=== PATIENT | male | born 1940 | race Caucasian/White ===

== ENCOUNTER → 2018-05-19 07:25 | Outpatient (CLI) | payer MEDICARE, OTHER, SELFPAY ==
[2018-05-19 07:49] LABS: Add Manual Diff / Slide Review NO; Basophils Percent Auto 0.6 % (0-2); Eosinophils Percent Auto 1.3 % (2-4); Hematocrit 37.4 % (41-53); Hemoglobin 12.6 g/dL (13.5-17.5); Lymphocytes Percent Auto 21.9 % (25-40); Mean Corpuscular HGB Conc 33.6 % (30-36); Mean Corpuscular Hemoglobin 26.1 PG (26-34); Mean Corpuscular Volume 77.7 fL (80-100); Monocytes Percent Auto 7.2 % (3-14); Neutrophils Absolute Auto 6800 /uL (3000-5900); Platelet Count 371 X10^3/uL (150-400); Red Blood Cell Count 4.81 X10^6/uL (4.5-5.9); Red Cell Distribution Width 14.3 % (11.6-14.8); White Blood Cell Count 9.9 X10^3/uL (4.5-11.0)
== END ==
PROVIDERS: PCP Internal Medicine; Visit Provider Internal Medicine Hematology & Oncology
DX: C18.7 Malignant neoplasm of sigmoid colon (principal)
CPT/HCPCS: 36415; 85025

== ENCOUNTER 2018-11-19 20:53 | Emergency (ER) | payer MEDICARE, OTHER, SELFPAY ==
[2018-11-19 21:07] VITALS: BP 132/79; PULSE 85; RESP 18; TEMP 36.8; O2SAT 99
--- NOTE | 2018-11-19 21:13 | DI.RAD.S_ITS ---
PROCEDURE: XR CHEST 1V INDICATIONS: fever TECHNIQUE: One view of the chest was acquired. COMPARISON: [facility], , CHEST 2 VIEW, 01/09/2015, 10:45. FINDINGS: Surgical changes and devices: Right chest port with the tip projecting in the upper SVC Lungs and pleura: No acute consolidation. Scattered subsegmental atelectasis and/or scarring. No pleural effusions or pneumothorax. Mediastinum: Mediastinal contours appear normal. Heart size is normal. Bones and chest wall: Bilateral shoulder joint degeneration. IMPRESSION: Right chest port with the tip projecting in the upper SVC. No pneumothorax. No acute consolidation. Scattered subsegmental atelectasis and/or scarring Dictated by: Omar Estrada M.D. on 11/20/2018 at 7:49 Approved by: Omar Estrada M.D. on 11/20/2018 at 7:51
--- NOTE | 2018-11-19 21:18 | ED.FEVER ---
HPI - Fever General Chief Complaint: Fever Stated Complaint: FEVER, CANCER PATIENT Time Seen by Provider: 11/19/18 21:01 Source: patient Mode of arrival: ambulatory Limitations: no limitations History of Present Illness HPI Narrative: patient is a 78-year-old male with colon cancer. He finished chemo and radiation but beginning of October presenting today with a fever of 102. he was a little chilled today and took a nap and felt warm. His took his temperature numerous times even when out and bought a new thermometer took his temperature again it remained elevated at 102. At which point she gave him Tylenol. He is now afebrile without specific complaints although he does have some painful urination. His he has no cough or shortness of breath. He does struggle with constipation although he had a bowel movement today he has no significant abdominal pain no nausea or vomiting. He is scheduled for surgery for colon cancer next week. MD complaint: fever Onset (ago): hour(s) Relieving factors: acetaminophen Treatments prior to arrival fever: acetaminophen Related Data Previous Rx's Medication Instructions Recorded irbesartan 300 mg PO QDAY #180 tab 10/20/17 azithromycin [Zithromax Z-Boy] 0 PO SEE INSTRUCTIONS 5 Days #0 tab 01/19/18 ciprofloxacin HCl [Cipro] 500 mg PO BID #14 tab 11/19/18 Allergies Allergy/AdvReac Type Severity Reaction Status Date / Time No Known Drug Allergies Allergy Verified 11/19/18 21:06 Review of Systems Review of Systems ROS Unobtainable: All systems reviewed & are unremarkable except as noted in HPI and below Constitutional Reports chills, Reports fever(s), Denies headache(s) and Denies lethargy Eyes Denies change in vision, Denies eye discharge, Denies irritation and Denies loss of vision ENT Ears, Nose, Mouth, and Throat: Denies headache(s) Cardiovascular Denies chest pain, Denies irregular heart rhythm, Denies lightheadedness, Denies palpitations and Denies orthopnea Gastrointestinal Gastrointestinal: Reports constipation ( Bowel movement today on MiraLax and Colace) Genitourinary Reports as per HPI Musculoskeletal Denies back pain, Denies muscle weakness, Denies numbness and Denies tingling Integumentary/Breasts Denies pruritus, Denies erythema, Denies rash and Denies wounds Neurologic Denies headache(s), Denies loss of vision, Denies numbness and Denies tingling Endocrine Denies palpitations PFSH Medical History Colon cancer (Acute) Surgical History History of tonsillectomy History of vasectomy Family History Grandmother Cancer Diabetes mellitus Heart disease Grandfather Heart disease Hypertension Grandmother Heart disease Sister Age: 75 Overweight Diabetes mellitus Social History Smoking Status: Never smoker Family History Grandmother Cancer Diabetes mellitus Heart disease Grandfather Heart disease Hypertension Grandmother Heart disease Sister Age: 75 Overweight Diabetes mellitus Social History Smoking Status: Never smoker Exam Initial Vital Signs Initial Vital Signs: Vital Signs Temperature 98.3 F 11/19/18 21:07 Pulse Rate 85 11/19/18 21: Respiratory Rate 18 11/19/18 21:07 Blood Pressure 132/79 11/19/18 21: Pulse Oximetry 99 11/19/18 21:07 GENERAL: well-appearing elderly male in no acute distress or in oriented x4 HEENT: Head atraumatic,EOMI, pupils reactive, neck is supple CARDIOVASCULAR: Regular rate and rhythm without murmurs, rubs or gallops. RESPIRATORY: Breath sounds equal bilaterally, no wheezes rales or rhonchi. ABDOMEN: Soft, nontender. Normoactive bowel sounds all 4 quadrants. No guarding or rebound. EXTREMITIES: Normal range of motion, no clubbing or edema. Neurovascularly intact NEUROLOGICAL: Alert and oriented x4.Normal gait and speech. SKIN: Warm, dry, no laceration, no petechiae, no rashes or lesions. Course Orders Ordered: ED Orders 11/19/18 21:13 XR chest 1V Stat 11/19/18 21:20 Blood Culture Stat Complete Blood Count AUTO DIFF Stat Comprehensive Metabolic Panel Stat Lactate (Lactic Acid) Stat Procalcitonin Stat 11/19/18 21:45 Influenza A and B by PCR Rapid Stat 11/19/18 22:50 Urine Microscopic Stat Discontinued Medications Sodium Chloride (Normal Saline 0.9%) 1,000 mls @ 1,000 mls/hr IV CONT CONCHITA Last Infusion: 11/19/18 23:10 Dose: 0 mls/hr Admin: 11/19/18 21:33 Dose: 1,000 mls/hr Levofloxacin (Levaquin) 500 mg PO NOW ONE Stop: 11/19/18 23:32 Last Admin: 11/19/18 23:49 Dose: 500 mg Vital Signs - 8 hr 11/19/18 21:07 11/19/18 21:37 11/19/18 22:55 Temperature 98.3 F 97.9 F Pulse Rate 85 79 74 Respiratory Rate 18 17 16 Blood Pressure 132/79 Blood Pressure [Right Arm] 114/70 110/77 Pulse Oximetry 99 98 97 MDM - Fever Lab Data Attestation: I reviewed the patient's lab results. Result diagrams: 11/19/18 21:20 11/19/18 21:20 Lab Results 11/19/18 11/19/18 11/19/18 Range/Units 21:20 21:20 21:20 WBC 10.1 (4.5-11.0) X10^3/uL RBC 3.52 L (4.5-5.9) X10^6/uL Hgb 10.8 L (13.5-17.5) g/dL Hct 32.3 L (41-53) % MCV 91.6 (80-100) fL MCH 30.6 (26-34) PG MCHC 33.4 (30-36) % RDW 15.7 H (11.6-14.8) % Plt Count 327 (150-400) X10^3/uL Neut % (Auto) 86.3 H (50-75) % Lymph % (Auto) 6.6 L (25-40) % [place] % (Auto) 5.9 (3-14) % Eos % (Auto) 0.8 L (2-4) % Baso % (Auto) 0.4 (0-2) % Neut # (Auto) 8800 H (6400-3784) /uL Lymph # (Auto) 700 L (4430-5523) /uL [place] # (Auto) 600 (0-900) /uL Eos # (Auto) 100 (0-450) /uL Baso # (Auto) 0 (0-100) /uL Sodium 136 L (137-145) mmol/L Potassium 4.2 (3.4-5.1) mmol/L Chloride 102 (98-107) mmol/L Carbon Dioxide 21 L (22-32) mmol/L BUN 18 (9-20) mg/dL Creatinine 0.80 (0.66-1.25) mg/dL Estimated GFR > 60.0 (>60) mL/min BUN/Creatinine Ratio 22.5 H (6-22) Glucose 111 H (80-110) mg/dL Lactate (0.7-2.1) mmol/L Calcium 8.5 (8.4-10.2) mg/dL Total Bilirubin 0.8 (0.2-1.3) mg/dL AST 32 (17-59) IU/L ALT 23 (21-72) IU/L Alkaline Phosphatase 176 H (38-126) U/L Total Protein 7.6 (6.3-8.2) g/dL Albumin 3.8 (3.5-5.0) g/dL Globulin 3.8 (1.7-4.1) g/dL Albumin/Globulin Ratio 1.0 (1.0-2.8) Procalcitonin 0.15 (<0.5) ng/mL Urine RBC (0-5/HPF) Urine WBC (0-5/HPF) Ur Squamous Epith Cells Urine Bacteria (None) Ur Culture Indicated? Influenza A & B (PCR) (Negative) 11/19/18 11/19/18 11/19/18 Range/Units 21:20 21:45 22:50 WBC (4.5-11.0) X10^3/uL RBC (4.5-5.9) X10^6/uL Hgb (13.5-17.5) g/dL Hct (41-53) % MCV (80-100) fL MCH (26-34) PG MCHC (30-36) % RDW (11.6-14.8) % Plt Count (150-400) X10^3/uL Neut % (Auto) (50-75) % Lymph % (Auto) (25-40) % [place] % (Auto) (3-14) % Eos % (Auto) (2-4) % Baso % (Auto) (0-2) % Neut # (Auto) (4940-9774) /uL Lymph # (Auto) (5987-0636) /uL [place] # (Auto) (0-900) /uL Eos # (Auto) (0-450) /uL Baso # (Auto) (0-100) /uL Sodium (137-145) mmol/L Potassium (3.4-5.1) mmol/L Chloride (98-107) mmol/L Carbon Dioxide (22-32) mmol/L BUN (9-20) mg/dL Creatinine (0.66-1.25) mg/dL Estimated GFR (>60) mL/min BUN/Creatinine Ratio (6-22) Glucose (80-110) mg/dL Lactate 1.0 (0.7-2.1) mmol/L Calcium (8.4-10.2) mg/dL Total Bilirubin (0.2-1.3) mg/dL AST (17-59) IU/L ALT (21-72) IU/L Alkaline Phosphatase (38-126) U/L Total Protein (6.3-8.2) g/dL Albumin (3.5-5.0) g/dL Globulin (1.7-4.1) g/dL Albumin/Globulin Ratio (1.0-2.8) Procalcitonin (<0.5) ng/mL Urine RBC 0-1/hpf (0-5/HPF) Urine WBC 0-1/hpf (0-5/HPF) Ur Squamous Epith Cells 5-10 /hpf H Urine Bacteria Moderate (10-30) H (None) Ur Culture Indicated? Cult not indicated Influenza A & B (PCR) Negative (Negative) Urine Dip Bedside Urine Glucose Negative Bedside Urine Bilirubin + 1 Bedside Urine Ketone - Negative Urine Specific [place] 1.015 Bedside Urine Occult Blood ++ Bedside Urine pH 6.0 Bedside Urine Protein ++ 100 Bedside Urine Urobilinogen 1+ 2mg Bedside Urine Nitrite - Negative Bedside Urine Leukocytes +/- 15 Esterase Imaging Data Chest x-ray: Attestation: I personally reviewed and interpreted this imaging study as follows: My impression: Port placed, no acute cardiopulmonary process no pneumonia MDM Narrative Medical decision making narrative: Patient is not neutropenic. She does have some discomfort with urination. He does have leukocytes in his urine with a mildly elevated procalcitonin. Based on patient's symptoms will treat. He really appears well he would like to go home. He has no complaints. Discharge Plan Departure Patient Disposition: Home Clinical Impression: UTI (urinary tract infection) Qualifiers: Urinary tract infection type: acute cystitis Hematuria presence: without hematuria Qualified Code(s): N30.00 - Acute cystitis without hematuria Discharge Date/Time: 11/20/18 00:00 Interventions: ED Discharge Assessment Last Done: 11/20/18 00:10 Instructions: DI for Urinary Tract Infection (UTI) Activity Restrictions/Additional Instructions: *You have been diagnosed with bladder infection *What to do: increase fluid intake, fever control *Continue to take medications as directed Cipro 500 mg twice a day for 7 days *Follow up with your primary care provider in 2-3 days *Return to ER if you should have increasing weakness, decreased oral intake is, persistent fever, any new, worsening or concerning symptoms Prescriptions: New ciprofloxacin HCl [Cipro] 500 mg tablet 500 mg PO BID Qty: 14 RF: 0 No Action irbesartan 150 MG tablet 300 mg PO QDAY Qty: 180 RF: 3 azithromycin [Zithromax Z-Boy] 250 MG tablet PO SEE INSTRUCTIONS 5 Days Qty: 0 RF: 0 Referrals: Rika Robertson ARNP [Primary Care Provider] -
[2018-11-19] MEDS: SODIUM CHLORIDE 0.9% 1,000 ML 1000 ML IV (21:33)
[2018-11-19 21:37] VITALS: BP 114/70; PULSE 79; RESP 17; O2SAT 98
[2018-11-19 21:40] LABS: Add Manual Diff / Slide Review NO; Basophils Absolute Auto 0 /uL (0-100); Basophils Percent Auto 0.4 % (0-2); Eosinophils Absolute Auto 100 /uL (0-450); Eosinophils Percent Auto 0.8 % (2-4); Hematocrit 32.3 % (41-53); Hemoglobin 10.8 g/dL (13.5-17.5); Lymphocytes Absolute Auto 700 /uL (1100-4500); Lymphocytes Percent Auto 6.6 % (25-40); Mean Corpuscular HGB Conc 33.4 % (30-36); Mean Corpuscular Hemoglobin 30.6 PG (26-34); Mean Corpuscular Volume 91.6 fL (80-100); Monocytes Absolute Auto 600 /uL (0-900); Monocytes Percent Auto 5.9 % (3-14); Neutrophils Absolute Auto 8800 /uL (1500-7000); Neutrophils Percent Auto 86.3 % (50-75); Platelet Count 327 X10^3/uL (150-400); Red Blood Cell Count 3.52 X10^6/uL (4.5-5.9); Red Cell Distribution Width 15.7 % (11.6-14.8); White Blood Cell Count 10.1 X10^3/uL (4.5-11.0)
[2018-11-19 21:53] LABS: Alanine Aminotransferase 23 IU/L (21-72); Albumin 3.8 g/dL (3.5-5.0); Alkaline Phosphatase 176 U/L (38-126); Aspartate Aminotransferase 32 IU/L (17-59); BUN Creatinine Ratio 22.5 (6-22); Bilirubin Total 0.8 mg/dL (0.2-1.3); Blood Urea Nitrogen 18 mg/dL (9-20); Calcium 8.5 mg/dL (8.4-10.2); Carbon Dioxide 21 mmol/L (22-32); Chloride 102 mmol/L (98-107); Estimated Glomerular Filt Rate > 60.0 mL/min (>60); Globulin 3.8 g/dL (1.7-4.1); Glucose 111 mg/dL (80-110); HEMOLYSIS 42 (0-50); Potassium 4.2 mmol/L (3.4-5.1); Sodium 136 mmol/L (137-145); Total Protein 7.6 g/dL (6.3-8.2)
[2018-11-19 22:08] LABS: Procalcitonin 0.15 ng/mL (<0.5)
[2018-11-19 22:12] LABS: Influenza A and B by PCR Rapid Negative (Negative)
[2018-11-19 22:55] VITALS: BP 110/77; PULSE 74; RESP 16; TEMP 36.6; O2SAT 97
[2018-11-19 23:25] LABS: Bacteria Urine Moderate (10-30); RBC Urine 0-1/HPF (0-5/HPF); Squamous Epithelial Cell Urine 5-10 /HPF; WBC Urine 0-1/HPF (0-5/HPF)
[2018-11-19 23:26] LABS: Culture Indicated Urine Cult Not Indicated
[2018-11-19] MEDS: levoFLOXacin 250 MG TABLET 500 MG PO (23:49)
== END 2018-11-20 | disposition home or self-care (01) ==
PROVIDERS: Emergency Provider Emergency Medicine; Family Provider Internal Medicine; PCP Internal Medicine
DX: N39.0 Urinary tract infection, site not specified (principal)
CPT/HCPCS: 36591; 71045; 80053; 81003; 81015; 83605; 84145; 85025; 87040; 87400; 96360; 96361; 99283; 99284

== ENCOUNTER → 2019-11-03 13:30 | Oncology outpatient (ONC) | payer MEDICARE, OTHER, SELFPAY ==
[2019-10-28] MEDS: SODIUM CHLORIDE 0.9% 1,000 ML 1000 ML IV (15:33)
[2019-10-28 15:43] VITALS: BP 119/79; PULSE 75; RESP 16; TEMP 36.4; O2SAT 100
[2019-10-28 16:58] LABS: BUN Creatinine Ratio 22.5 (6-22); Blood Urea Nitrogen 27 mg/dL (9-20); Calcium 8.6 mg/dL (8.4-10.2); Carbon Dioxide 19 mmol/L (22-32); Chloride 110 mmol/L (98-107); Estimated Glomerular Filt Rate 58.1 mL/min (>60); Glucose 87 mg/dL (80-110); HEMOLYSIS < 15 (0-50); Potassium 4.5 mmol/L (3.4-5.1); Sodium 137 mmol/L (137-145)
[2019-11-03] MEDS: SODIUM CHLORIDE 0.9% 1,000 ML 500 ML IV (14:05)
[2019-11-03 14:19] VITALS: BP 109/69; PULSE 70; RESP 16; TEMP 36.8; O2SAT 99
[2019-11-03 16:45] LABS: Blood Urea Nitrogen 20 mg/dL (9-20); Calcium 8.7 mg/dL (8.4-10.2); Carbon Dioxide 23 mmol/L (22-32); Chloride 108 mmol/L (98-107); Estimated Glomerular Filt Rate > 60.0 mL/min (>60); Glucose 101 mg/dL (80-110); HEMOLYSIS < 15 (0-50); Potassium 4.4 mmol/L (3.4-5.1); Sodium 138 mmol/L (137-145)
== END ==
PROVIDERS: PCP Internal Medicine; Visit Provider Internal Medicine Hematology & Oncology
DX: C19 Malignant neoplasm of rectosigmoid junction (principal); N28.9 Disorder of kidney and ureter, unspecified; Z93.2 Ileostomy status
CPT/HCPCS: 36415; 80048; 96360; 96523

== ENCOUNTER → 2022-04-23 15:44 | Outpatient (ROUT) | payer MEDICARE, OTHER, SELFPAY ==
[2022-04-23 15:52] LABS: Add Manual Diff / Slide Review NO; Basophils Absolute Auto 0 /uL (0-100); Basophils Percent Auto 0.5 % (0-2); Eosinophils Absolute Auto 0 /uL (0-450); Eosinophils Percent Auto 0.5 % (2-4); Hematocrit 37.8 % (41-53); Lymphocytes Absolute Auto 700 /uL (1100-4500); Lymphocytes Percent Auto 9.6 % (25-40); Mean Corpuscular HGB Conc 34.5 % (30-36); Mean Corpuscular Volume 86.9 fL (80-100); Monocytes Absolute Auto 400 /uL (0-900); Monocytes Percent Auto 6.1 % (3-14); Neutrophils Absolute Auto 6100 /uL (1500-7000); Neutrophils Percent Auto 83.3 % (50-75); Platelet Count 212 X10^3/uL (150-400); Red Blood Cell Count 4.35 X10^6/uL (4.5-5.9); Red Cell Distribution Width 14.1 % (11.6-14.8); White Blood Cell Count 7.4 X10^3/uL (4.5-11.0)
[2022-04-23 17:12] LABS: Alanine Aminotransferase 12 IU/L (<50); Albumin Globulin Ratio 1.5 (1.0-2.8); Alkaline Phosphatase 83 U/L (38-126); Aspartate Aminotransferase 23 IU/L (17-59); BUN Creatinine Ratio 18.7 (6-22); Bilirubin Total 1.6 mg/dL (0.2-1.3); Blood Urea Nitrogen 17 mg/dL (9-20); Calcium 8.7 mg/dL (8.4-10.2); Carbon Dioxide 27 mmol/L (22-32); Chloride 106 mmol/L (98-107); Estimated Glomerular Filt Rate > 60 mL/min (>60); Globulin 2.7 g/dL (1.7-4.1); Glucose 96 mg/dL (80-110); HEMOLYSIS < 15 (0-50); Potassium 4.5 mmol/L (3.4-5.1); Sodium 139 mmol/L (137-145); Total Protein 6.7 g/dL (6.3-8.2)
== END ==
PROVIDERS: Family Provider Internal Medicine; PCP Internal Medicine; Visit Provider Internal Medicine
DX: U07.1 COVID-19 (principal); I10 Essential (primary) hypertension; C18.9 Malignant neoplasm of colon, unspecified
CPT/HCPCS: 80053; 85025

== ENCOUNTER → 2023-01-24 09:43 | Outpatient (CLI) | payer MEDICARE, OTHER, SELFPAY ==
[2023-01-24 10:41] LABS: Add Manual Diff / Slide Review NO; Basophils Absolute Auto 0 /uL (0-100); Basophils Percent Auto 0.5 % (0-2); Eosinophils Absolute Auto 100 /uL (0-450); Eosinophils Percent Auto 1.8 % (2-4); Hematocrit 40.2 % (41-53); Hemoglobin 13.8 g/dL (13.5-17.5); Lymphocytes Absolute Auto 800 /uL (1100-4500); Lymphocytes Percent Auto 16.4 % (25-40); Mean Corpuscular HGB Conc 34.4 % (30-36); Mean Corpuscular Hemoglobin 29.7 PG (26-34); Mean Corpuscular Volume 86.2 fL (80-100); Monocytes Absolute Auto 300 /uL (0-900); Monocytes Percent Auto 5.6 % (3-14); Neutrophils Absolute Auto 3700 /uL (1500-7000); Neutrophils Percent Auto 75.7 % (50-75); Platelet Count 238 X10^3/uL (150-400); Red Blood Cell Count 4.67 X10^6/uL (4.5-5.9); White Blood Cell Count 4.9 X10^3/uL (4.5-11.0)
[2023-01-24 11:08] LABS: Alanine Aminotransferase 18 IU/L (<50); Albumin 4.3 g/dL (3.5-5.0); Albumin Globulin Ratio 1.3 (1.0-2.8); Alkaline Phosphatase 86 U/L (38-126); Aspartate Aminotransferase 25 IU/L (17-59); BUN Creatinine Ratio 19.4 (6-22); Bilirubin Total 1.6 mg/dL (0.2-1.3); Blood Urea Nitrogen 18 mg/dL (9-20); Calcium 9.1 mg/dL (8.4-10.2); Carbon Dioxide 28 mmol/L (22-32); Chloride 105 mmol/L (98-107); Estimated Glomerular Filt Rate > 60 mL/min (>60); Globulin 3.2 g/dL (1.7-4.1); Glucose 109 mg/dL (80-110); HEMOLYSIS < 15 (0-50); Potassium 4.7 mmol/L (3.4-5.1); Sodium 141 mmol/L (137-145); Total Protein 7.5 g/dL (6.3-8.2); Uric Acid 6.4 mg/dL (3.5-8.5)
[2023-01-24 11:13] LABS: High Sensitivity CRP - Cardiac 0.9 mg/L (1.0-3.0); Rheumatoid Factor 13.5 IU/mL (<12.0)
[2023-01-24 11:36] LABS: Thyroid Stimulating Hormone 2.27 uIU/mL (0.47-4.68)
[2023-01-24 12:22] LABS: Erythrocyte Sedimentation Rate 7 MM/HR (0-15)
[2023-01-25 17:08] LABS: SS A Ro Sjogrens Antibody < 0.2 AI (0.0-0.9); SS B La Sjogrens Antibody < 0.2 AI (0.0-0.9)
[2023-01-27 09:10] LABS: Angiotensin Converting Enzyme 44 U/L (14-82)
[2023-01-28 10:13] LABS: ANA Screen, IFA Negative (.)
== END ==
PROVIDERS: Family Provider Internal Medicine; PCP Internal Medicine; Referring Provider Ophthalmology; Visit Provider Ophthalmology
DX: H53.453 Other localized visual field defect, bilateral (principal)
CPT/HCPCS: 36415; 80053; 82164; 84443; 84550; 85025; 85651; 86038; 86140; 86235; 86430

== ENCOUNTER → 2023-01-27 16:28 | Outpatient (CLI) | payer MEDICARE, OTHER, SELFPAY ==
--- NOTE | 2023-01-27 16:33 | DI.MRI.S_ITS ---
PROCEDURE: MR HEAD/BRAIN WO/W CON INDICATIONS: Unspecified optic atrophy TECHNIQUE: Noncontrast axial T1 spin echo, axial T2 fast spin echo, sagittal and axial FLAIR, axial gradient echo, axial diffusion and ADC through the brain. After the administration of contrast, axial and coronal and sagittal T1 spin echo with fat saturation through the brain, coronal thin-slice T1 spin echo with fat saturation through the orbits. COMPARISON: None. FINDINGS: Image quality: Excellent. Orbits: The globes demonstrate a normal, symmetric appearance. Scrutiny is given to the optic nerves demonstrate an unremarkable, symmetric appearance. No abnormal fluid can be seen along the optic nerves themselves. No orbital masses are seen. The Anusha glands demonstrate a symmetric appearance. The extraocular muscles likewise demonstrate a normal, symmetric appearance, without abnormal enhancement. CSF spaces: Ventricles are normal in size and shape. Basal cisterns are patent. There is a nonenhancing fluid collection involving the posterior fossa, just to the right of midline, which is attributed to an arachnoid cyst. Brain: No acute intracranial bleeds or mass effects. Yeager-white matter interface is intact. No abnormal intracranial enhancement. Diffusion weighted images demonstrate no acute ischemic insults. Brainstem appears normal. Normal intravascular flow voids are present. Skull and face: Calvarial marrow signal is normal. Orbits appear normal. Sinuses: Sinuses and mastoids appear clear. Mild bilateral candi bullosa can be seen. IMPRESSION: No significant orbital abnormality is identified. No significant intracranial abnormality is seen. No findings of acute or subacute infarction can be seen. Additional findings: Right posterior fossa arachnoid cyst Dictated by: Joss Anaya M.D. on 01/27/2023 at 18:24 Approved by: Joss Anaya M.D. on 01/27/2023 at 18:26
== END ==
PROVIDERS: Family Provider Internal Medicine; PCP Internal Medicine; Referring Provider Ophthalmology; Visit Provider Ophthalmology
DX: H47.20 Unspecified optic atrophy (principal); G93.0 Cerebral cysts; D86.0 Sarcoidosis of lung; H31.092 Other chorioretinal scars, left eye; H53.453 Other localized visual field defect, bilateral
CPT/HCPCS: 70553; A9579

== ENCOUNTER → 2023-08-12 08:32 | Outpatient (CLI) | payer MEDICARE, OTHER, SELFPAY | PROVIDERS: Family Provider Internal Medicine; PCP Internal Medicine; Referring Provider Physician Assistant; Visit Provider Surgery | DX: T81.31XA Disruption of external operation (surgical) wound, not elsewhere classified, initial encounter (principal); S31.000A Unspecified open wound of lower back and pelvis without penetration into retroperitoneum, initial encounter | CPT/HCPCS: 11042; 87070; 87075; 87205; 99203; 99213 ==

== ENCOUNTER → 2023-08-19 08:32 | Outpatient (CLI) | payer MEDICARE, OTHER, SELFPAY | PROVIDERS: Family Provider Internal Medicine; PCP Internal Medicine; Referring Provider Physician Assistant; Visit Provider Surgery | DX: T81.31XA Disruption of external operation (surgical) wound, not elsewhere classified, initial encounter (principal); I10 Essential (primary) hypertension; Z85.828 Personal history of other malignant neoplasm of skin; Z85.038 Personal history of other malignant neoplasm of large intestine; Z92.3 Personal history of irradiation | CPT/HCPCS: 11042 ==

== ENCOUNTER → 2023-08-26 08:45 | Outpatient (CLI) | payer MEDICARE, OTHER, SELFPAY | PROVIDERS: Family Provider Internal Medicine; PCP Internal Medicine; Referring Provider Physician Assistant; Visit Provider Surgery | DX: T81.31XA Disruption of external operation (surgical) wound, not elsewhere classified, initial encounter (principal); S31.000A Unspecified open wound of lower back and pelvis without penetration into retroperitoneum, initial encounter; I10 Essential (primary) hypertension | CPT/HCPCS: 11042 ==

== ENCOUNTER → 2023-09-01 08:54 | Outpatient (CLI) | payer MEDICARE, OTHER, SELFPAY | PROVIDERS: Family Provider Internal Medicine; PCP Internal Medicine; Referring Provider Physician Assistant; Visit Provider Surgery | DX: T81.31XA Disruption of external operation (surgical) wound, not elsewhere classified, initial encounter (principal); S31.000A Unspecified open wound of lower back and pelvis without penetration into retroperitoneum, initial encounter; I10 Essential (primary) hypertension | CPT/HCPCS: 17250; 99213 ==

== ENCOUNTER → 2023-09-08 08:56 | Outpatient (CLI) | payer MEDICARE, OTHER, SELFPAY | PROVIDERS: Family Provider Internal Medicine; PCP Internal Medicine; Referring Provider Physician Assistant; Visit Provider Physician Assistant | DX: T81.31XD Disruption of external operation (surgical) wound, not elsewhere classified, subsequent encounter (principal) | CPT/HCPCS: 97597; 99212; 99213 ==

== ENCOUNTER → 2023-09-15 09:30 | Outpatient (CLI) | payer MEDICARE, OTHER, SELFPAY | PROVIDERS: Family Provider Internal Medicine; PCP Internal Medicine; Referring Provider Physician Assistant; Visit Provider Surgery | DX: T81.31XD Disruption of external operation (surgical) wound, not elsewhere classified, subsequent encounter (principal) | CPT/HCPCS: 99213 ==